=== PATIENT | male | born 1980 | race Caucasian/White ===

== ENCOUNTER 2021-11-10 14:01 | Emergency (ER) | payer OTHER ==
[2021-11-10 15:44] LABS: HEMOGLOBIN 16.4 gm/dl (14.0-17.5); RED BLOOD COUNT 5.38 M/UL (4.20-5.50); WHITE BLOOD COUNT 13.4 K/UL (4.5-11.0)
[2021-11-10 16:09] LABS: BUN/CREATININE RATIO 10 (0-10)
[2021-11-10] MEDS ORDERED: AMOXICILLIN500 MG PO (21:08)
== END 2021-11-10 22:15 | disposition home or self-care (01) ==
LOC: ER1 14:01
PROVIDERS: Emergency Medicine
DX: J18.9 Pneumonia, unspecified organism (principal); Z87.891 Personal history of nicotine dependence
CPT/HCPCS: 71045; 71260; 80053; 85025; 85610; 85730; 96374; 99284; J0696; Q9967